=== PATIENT | female | born 2000 | race Caucasian/White ===

== ENCOUNTER 2019-02-08 12:50 | Inpatient (IN) | payer MEDICAID ==
[~2019-02-08] VITALS: Ht 152.4 cm; Wt 77.1 kg
[2019-02-08] MEDS ORDERED: TERBUTALINE SULFATE 1 MG/ML VIAL SUBCUT ONE (13:15)
[2019-02-08] MEDS ORDERED: OXYTOCIN/0.9 % SODIUM CHLORIDE 1,000 ML IV SCH (13:15)
[2019-02-08] MEDS ORDERED: LR 1,000 ML IV ONE (13:15)
[2019-02-08] MEDS: LR 1,000 ML IV SCH ×2 (13:36→21:15)
[2019-02-08 13:54] LABS: BASOPHILS % (AUTO) 0.4 % (0.0-2.0); EOSINOPHILS % (AUTO) 0.5 % (0.0-4.0); HEMATOCRIT 33.2 % (36-48); HEMOGLOBIN 11.1 g/dL (12.0-16.0); LYMPHOCYTES # (AUTO) 2.1 K/uL (1.0-5.5); LYMPHOCYTES % (AUTO) 25.2 % (20.5-51.5); MEAN CORPUSCULAR HEMOGLOBIN 28 pg (27-31); MEAN CORPUSCULAR HGB CONC 34 % (32-36); MEAN CORPUSCULAR VOLUME 82 fL (79.0-98.0); MONOCYTES # (AUTO) 0.6 K/uL (0.0-1.0); MONOCYTES % (AUTO) 6.9 % (1.7-9.3); NEUTROPHILS # (AUTO) 5.6 K/uL (1.8-7.7); PLATELET COUNT (AUTO) 151 K/uL (130-430); RED CELL DISTRIBUTION WIDTH 16.2 % (9.0-15.0); WHITE BLOOD COUNT (AUTO) 8.4 K/uL (4.5-11.0)
[2019-02-08 13:57] LABS: RED BLOOD CELL COUNT(AUTO) 4.04 MIL/uL (4.2-6.2)
[2019-02-08 14:55] VITALS: BP_SYST 116
[2019-02-08] MEDS: NALBUPHINE HCL 10 MG/ML AMP IVP PRN ×2 (16:13→21:17)
[2019-02-09] MEDS: NALBUPHINE HCL 10 MG/ML AMP IVP PRN (01:14)
[2019-02-09] MEDS ORDERED: OXYTOCIN/0.9 % SODIUM CHLORIDE 1,000 ML IV ONE (02:13)
[2019-02-09] MEDS ORDERED: OXYTOCIN/0.9 % SODIUM CHLORIDE 1,000 ML IV SCH (02:13)
[2019-02-09] MEDS ORDERED: ANUSOL 1 EA SUPP.RECT (PREPARATION H) RC PRN (02:15)
[2019-02-09] MEDS ORDERED: DOCUSATE SODIUM 100 MG CAPSULE PO PRN (02:15)
[2019-02-09] MEDS ORDERED: SENNOSIDES/DOCUSATE SODIUM 1 TAB TABLET(SENOKOT-S) PO PRN (02:15)
[2019-02-09] MEDS ORDERED: HYDROCORTISONE 0.5%, 28.35 GM TOPICAL CREAM TP PRN (02:15)
[2019-02-09] MEDS ORDERED: LANOLIN 7 GM OINT. TP PRN (02:15)
[2019-02-09] MEDS ORDERED: METHYLERGONOVINE MALEATE 0.2 MG TABLET PO PRN (02:15)
[2019-02-09] MEDS ORDERED: WITCH HAZEL LEAF 1 MED.PAD MED.PAD TP PRN (02:15)
[2019-02-09] MEDS ORDERED: DERMOPLAST SPRAY TP PRN (02:15)
[2019-02-09] MEDS ORDERED: HYDROcodone/ACETAMIN 5-325 MG TAB (NORCO/ VICODIN) PO PRN (02:15)
[2019-02-09] MEDS: IBUPROFEN 600 MG TABLET PO PRN ×3 (03:02→18:40)
[2019-02-09] MEDS: HYDROcodone/ACETAMIN 5-325 MG TAB (NORCO/ VICODIN) PO PRN ×2 (03:35→15:21)
[2019-02-09] MEDS ORDERED: FLU VACC QS2019-20 36MOS UP/PF 60 MCG/0.5 ML SYRINGE I.M. PRN (12:00)
[2019-02-09] MEDS ORDERED: MINERAL OIL 30 ML UDC PO ONE (12:36)
[2019-02-09] MEDS ORDERED: LIDOCAINE PF 1% 30ML(POUR BTL) INJ ONE (12:36)
[2019-02-10] MEDS: IBUPROFEN 600 MG TABLET PO PRN (06:20)
[2019-02-10 06:22] LABS: BASOPHILS % (AUTO) 0.4 % (0.0-2.0); EOSINOPHILS # (AUTO) 0.1 K/uL (0.0-0.4); EOSINOPHILS % (AUTO) 1.2 % (0.0-4.0); HEMATOCRIT 30.8 % (36-48); HEMOGLOBIN 10.4 g/dL (12.0-16.0); LYMPHOCYTES # (AUTO) 3.7 K/uL (1.0-5.5); LYMPHOCYTES % (AUTO) 35.1 % (20.5-51.5); MEAN CORPUSCULAR HEMOGLOBIN 28 pg (27-31); MEAN CORPUSCULAR HGB CONC 34 % (32-36); MEAN CORPUSCULAR VOLUME 83 fL (79.0-98.0); MONOCYTES # (AUTO) 0.7 K/uL (0.0-1.0); MONOCYTES % (AUTO) 6.6 % (1.7-9.3); NEUTROPHILS % (AUTO) 56.7 % (40.0-70.0); PLATELET COUNT (AUTO) 160 K/uL (130-430); RED BLOOD CELL COUNT(AUTO) 3.74 MIL/uL (4.2-6.2); RED CELL DISTRIBUTION WIDTH 15.9 % (9.0-15.0); WHITE BLOOD COUNT (AUTO) 10.5 K/uL (4.5-11.0)
[2019-02-10] MEDS ORDERED: DIPH-TET-PERTUS Vaccine 0.5 ML VIAL (ADACEL) I.M. ONE (09:45)
== END 2019-02-10 16:59 | disposition home or self-care (01) | DRG 560 ==
LOC: SPU 12:50
PROVIDERS: ADMIT Obstetrics & Gynecology; ATTEND Obstetrics & Gynecology
PROC: 10E0XZZ Delivery of Products of Conception, External Approach (ICD-10-PCS; principal; 2019-02-09)
PROC: 0KQM0ZZ Repair Perineum Muscle, Open Approach (ICD-10-PCS; 2019-02-09)
PROC: 0W8NXZZ Division of Female Perineum, External Approach (ICD-10-PCS; 2019-02-09)
DX: O70.1 Second degree perineal laceration during delivery (principal); Z37.0 Single live birth; Z3A.39 39 weeks gestation of pregnancy
CPT/HCPCS: 36415; 81002-TC; 85025; 86592; 86886; 86900; 86901; J2001; J2300; J2590; J7120

== ENCOUNTER 2020-10-11 04:46 | Observation (INO) | payer OTHER ==
[~2020-10-11] VITALS: Ht 2.5 cm; Wt 0.0 kg
[2020-10-11] MEDS ORDERED: ONDANSETRON HCL 4 MG/2 ML VIAL IVP PRN (06:00)
[2020-10-11] MEDS ORDERED: LR 1,000 ML IV SCH (06:00)
== END 2020-10-11 09:30 | disposition home or self-care (01) ==
LOC: SPU 04:46
PROVIDERS: ADMIT Obstetrics & Gynecology; ATTEND Obstetrics & Gynecology
DX: O21.2 Late vomiting of pregnancy (principal); O36.8130 Decreased fetal movements, third trimester, not applicable or unspecified; O62.9 Abnormality of forces of labor, unspecified; O26.893 Other specified pregnancy related conditions, third trimester; R19.7 Diarrhea, unspecified; R10.13 Epigastric pain; Z3A.38 38 weeks gestation of pregnancy
CPT/HCPCS: 81002; 96361; 96374; G0378; J2405

== ENCOUNTER 2020-10-15 06:19 | Inpatient (IN) | payer OTHER, SELFPAY ==
[~2020-10-15] VITALS: Ht 154.9 cm; Wt 71.2 kg
[2020-10-15] MEDS ORDERED: LR 1,000 ML IV ONE (09:00)
[2020-10-15] MEDS ORDERED: LR 1,000 ML IV SCH (09:00)
[2020-10-15] MEDS ORDERED: OXYTOCIN/0.9 % SODIUM CHLORIDE 1,000 ML IV SCH ×2 (09:00→11:30)
[2020-10-15] MEDS ORDERED: NALBUPHINE HCL 10 MG/ML AMP IVP PRN (09:00)
[2020-10-15] MEDS ORDERED: TERBUTALINE SULFATE 1 MG/ML VIAL SUBCUT ONE (09:00)
[2020-10-15 09:22] LABS: BASOPHILS % (AUTO) 0.4 % (0.0-2.0); EOSINOPHILS # (AUTO) 0.3 K/uL (0.0-0.4); EOSINOPHILS % (AUTO) 2.8 % (0.0-4.0); HEMATOCRIT 34.9 % (36-48); HEMOGLOBIN 11.7 g/dL (12.0-16.0); LYMPHOCYTES # (AUTO) 2.6 K/uL (1.0-5.5); LYMPHOCYTES % (AUTO) 25.2 % (20.5-51.5); MEAN CORPUSCULAR HEMOGLOBIN 28 pg (27-31); MEAN CORPUSCULAR HGB CONC 34 % (32-36); MEAN CORPUSCULAR VOLUME 83 fL (79.0-98.0); MONOCYTES # (AUTO) 0.6 K/uL (0.0-1.0); MONOCYTES % (AUTO) 6.3 % (1.7-9.3); NEUTROPHILS # (AUTO) 6.7 K/uL (1.8-7.7); NEUTROPHILS % (AUTO) 65.3 % (40.0-70.0); PLATELET COUNT (AUTO) 181 K/uL (130-430); RED CELL DISTRIBUTION WIDTH 16.5 % (9.0-15.0); WHITE BLOOD COUNT (AUTO) 10.2 K/uL (4.8-10.8)
[2020-10-15] MEDS ORDERED: ROPIVACAINE HCL/PF 0.2% 200 ML ONE (09:24)
[2020-10-15] MEDS ORDERED: fentaNYL CITRATE/PF 100 MCG/2 ML AMP ONE (09:24)
[2020-10-15] MEDS ORDERED: FENT2mCg/mL-ROPIVA0.2%/NS EPID 200 ML EP SCH (10:00)
[2020-10-15] MEDS ORDERED: DIPHENHYDRAMINE INJ 50 MG/ML VIAL IVP PRN (10:00)
[2020-10-15] MEDS ORDERED: ONDANSETRON HCL 4 MG/2 ML VIAL IVP PRN (10:00)
[2020-10-15] MEDS ORDERED: OXYTOCIN/0.9 % SODIUM CHLORIDE 1,000 ML IV ONE (11:30)
[2020-10-15] MEDS ORDERED: ANUSOL 1 EA SUPP.RECT (PREPARATION H) RC PRN (11:30)
[2020-10-15] MEDS ORDERED: METHYLERGONOVINE MALEATE 0.2 MG TABLET PO PRN (11:30)
[2020-10-15] MEDS ORDERED: DERMOPLAST SPRAY TP PRN (11:30)
[2020-10-15] MEDS ORDERED: LANOLIN 7 GM OINT. TP PRN (11:30)
[2020-10-15] MEDS ORDERED: OXYCODONE/ACETAMINOPHEN 5-325 TABLET PO PRN (11:30)
[2020-10-15] MEDS ORDERED: WITCH HAZEL LEAF 1 MED.PAD MED.PAD TP PRN (11:30)
[2020-10-15] MEDS ORDERED: HYDROCORTISONE 0.5% CREAM 28.4 GM CREAM.GM. TP PRN (11:30)
[2020-10-15] MEDS: IBUPROFEN 800 MG TABLET PO PRN ×3 (12:35→20:54)
[2020-10-15] MEDS: OXYCODONE/ACETAMINOPHEN 5-325 TABLET PO PRN ×2 (15:24→22:06)
[2020-10-15] MEDS ORDERED: TEMAZEPAM 15 MG CAPSULE PO PRN (21:00)
[2020-10-15] MEDS: SENNOSIDES/DOCUSATE SODIUM 1 TAB TABLET(SENOKOT-S) PO SCH (22:04)
[2020-10-16] MEDS: IBUPROFEN 800 MG TABLET PO PRN ×3 (05:05→18:32)
[2020-10-16 07:05] LABS: HEMATOCRIT 34.2 % (36-48); HEMOGLOBIN 11.4 g/dL (12.0-16.0)
[2020-10-16] MEDS: DOCUSATE SODIUM 100 MG CAPSULE PO SCH ×2 (09:36→18:32)
[2020-10-16] MEDS: OXYCODONE/ACETAMINOPHEN 5-325 TABLET PO PRN (09:37)
[2020-10-16] MEDS: SENNOSIDES/DOCUSATE SODIUM 1 TAB TABLET(SENOKOT-S) PO SCH (18:32)
[2020-10-17 19:07] LABS: FTA-Ab (T PALLIDUM) Non Reactive (Non Reactive)
== END 2020-10-16 20:14 | disposition home or self-care (01) | DRG 560 ==
LOC: SPU 06:19 → OBSVTOIN 07:46
PROVIDERS: ADMIT Obstetrics & Gynecology; ATTEND Obstetrics & Gynecology
PROC: 10D07Z6 Extraction of Products of Conception, Vacuum, Via Natural or Artificial Opening (ICD-10-PCS; principal; 2020-10-15)
PROC: 3E0R3BZ Introduction of Anesthetic Agent into Spinal Canal, Percutaneous Approach (ICD-10-PCS; 2020-10-15)
PROC: 00HU33Z Insertion of Infusion Device into Spinal Canal, Percutaneous Approach (ICD-10-PCS; 2020-10-15)
DX: O80 Encounter for full-term uncomplicated delivery (principal); Z20.822 Contact with and (suspected) exposure to COVID-19; Z37.0 Single live birth; Z3A.39 39 weeks gestation of pregnancy
CPT/HCPCS: 36415; 85018; 85025; 86592; 86780; 86886; 86900; 86901; G0378; J2300; J2590; J3010